=== PATIENT | female | born 1970 | race Caucasian/White ===

== ENCOUNTER → 2017-04-28 | Outpatient (CLI) | payer BC ==
[2017-04-28 10:57] LABS: ALT 34 U/L (9-52); AST 22 U/L (14-36); Alkaline Phosphatase 63 U/L (38-126); Anion Gap 11 mmol/L; Blood Urea Nitrogen 9 mg/dL (7-17); Calcium 9.6 mg/dL (8.4-10.2); Carbon Dioxide 28 mmol/L (22-30); Chloride 102 mmol/L (98-107); Cholesterol 259 mg/dL (<200); Glucose 108 mg/dL (74-99); HDL Cholesterol 51 mg/dL (40-60); Non-African American GFR(MDRD) >60 (>60 ml/min/1.73 sqM); Potassium 3.6 mmol/L (3.5-5.1); Sodium 141 mmol/L (137-145); Total Bilirubin 0.4 mg/dL (0.2-1.3); Total Protein 7.3 g/dL (6.3-8.2)
== END | disposition home or self-care (01) ==
LOC: LABWHC1 09:35
PROVIDERS: ATTEND Internal Medicine Interventional Cardiology
DX: I10 Essential (primary) hypertension (principal); R00.2 Palpitations
CPT/HCPCS: 36415; 80053; 80061; 84443

== ENCOUNTER → 2019-11-28 | Outpatient (CLI) | payer OTHER ==
--- NOTE | 2019-11-28 18:03 | US ---
EXAMINATION TYPE: US kidneys/renal and bladder DATE OF EXAM: 11/28/2019 COMPARISON: US CLINICAL HISTORY: R31.9 Hematuria, R10.30 Lower abdominal pain. EXAM MEASUREMENTS: Right Kidney: 10.0 x 6.1 x 4.3 cm Left Kidney: 10.5 x 4.5 x 5.5 cm Post Void Residual Volume: 10.4ml Right Kidney: No hydronephrosis or masses seen Left Kidney: No hydronephrosis or masses seen Bladder: wnl Bilateral Jets seen: no, only right ureteral jet was seen Normal Post Void Residual: yes There is no evidence for hydronephrosis at this point in time. No nephrolithiasis is seen. No rajwinder s are identified. The urinary bladder is anechoic. The kidneys show normal cortical medullary diffe rentiation. IMPRESSION: Normal renal ultrasound
--- NOTE | 2019-11-28 18:25 | US ---
EXAMINATION TYPE: US pelvic complete DATE OF EXAM: 11/28/2019 COMPARISON: NONE CLINICAL HISTORY: R31.9 Hematuria, R10.30 Lower abdominal pain; ; tubal ; perimenopause; LMP of spotting approximately one month ago TECHNIQUE: Transabdominal (TA). Transabdominal sonographic images of the pelvis were acquired. Date of LMP: one day spotting couple weeks ago EXAM MEASUREMENTS: Uterus: 10.0 x 8.3 x 5.3 cm Endometrial Stripe: 1.2 cm Right Ovary: not seen Left Ovary: 10.5x 4.5 x 5.5 cm 1. Uterus: anteverted; uterine fibroid 4.2 x 3.2 x 2.3cm upper left myometrium 2. Endometrium: unable to correlate thickness with 1 day vaginal bleeding 2 weeks for perimenopause 3. Right Ovary: Obscured by overlying bowel gas 4. Left Ovary: wnl 5. Bilateral Adnexa: wnl 6. Posterior cul-de-sac: wnl IMPRESSION: Fibroid uterus, endometrial stripe thickness as described, consider SNELLER HAND consult
== END | disposition home or self-care (01) ==
LOC: RADUSWWP 14:53
PROVIDERS: ATTEND Family Medicine
DX: D25.9 Leiomyoma of uterus, unspecified (principal); R31.9 Hematuria, unspecified
CPT/HCPCS: 76770; 76856